=== PATIENT | female | born 1975 | race Two or more races ===

== ENCOUNTER → 2019-09-11 | Day surgery (SDC) | payer OTHER ==
[~2019-09-11] MED LIST: ACETAMINOPHEN 325 MG TABLET PO PRN; ALBUTEROL SULFATE 2.5 MG/3 ML NEBU. NEB PRN; ATROPINE 0.5 MG/5 ML DISP.SYRIN. IV PRN; IV RINGERS SOLUTION,LACTATED 1,000 ML IV SCH; ONDANSETRON PF 4 MG/2 ML VIAL. IV PRN; PHENOL ORAL SPRAY 177ML BOTTLE. MM PRN; PROPOFOL 20 ML IV ONE; diphenhydrAMINE 50 MG/ML VIAL IV PRN
[2019-09-11 12:14] VITALS: BP 107/63
--- NOTE | 2019-09-12 18:38 | PATHOLOGY ---
[facility] Accession Number: [id number] . 01 Material submitted: . PART A: small bowel - SMALL BOWEL BX PART B: stomach - GASTRIC BX PART C: esophagus - DISTAL ESOPHAGUS BX. Modifiers: distal . 01 Clinical history: . Dysphagia A. R/O celiac B. R/O H. pylori . 02 Diagnosis: A. Small bowel biopsies: - No significant pathologic abnormalities. . B. Gastric biopsies: - Chronic gastritis, mild. . C. Esophageal biopsy, distal esophagus: - Segment of mildly hyperplastic squamous esophageal mucosa identified. . (JPM:willy; 09/12/2019) [facility] 09/12/2019 1305 Local . 02 Comment: Sections of the small bowel biopsy reveal segments of small intestine mucosa. Where best oriented, the mucosal villi show no sprue-like changes or significant inflammatory changes. . Sections of the gastric biopsy reveal segments of gastric antral and antral/body transition mucosa showing congestion and mild chronic inflammation. A properly-controlled immunoperoxidase stain for Helicobacter is negative for Helicobacter organisms. . Sections of the distal esophageal biopsy reveal a segment of mildly hyperplastic squamous esophageal mucosa. The findings are consistent with reflux esophagitis. There is no evidence of Small's change, dysplasia, or malignancy. . Special stain performed (B1): Immunoperoxidase stain for Helicobacter . (JPM:mml; 09/12/2019) . 02 Electronically signed: . Maikol Mcgovern MD, Pathologist NPI- [id number] . 01 Gross description: . A. The specimen is received in formalin, labeled "Melisa Derrek, small bowel biopsy". Received are two segments of pale atkinson soft tissue ranging in size from 0.2 to 0.4 cm in maximum dimensions. The specimen is submitted entirely in cassette A1. . B. The specimen is received in formalin, labeled "Melisa Derrek, 2". The specimen is additionally labeled on the requisition as, "gastric biopsy". Received are two segments of pale atkinson soft tissue ranging in size from 0.4 to 0.7 cm in maximum dimensions. The specimen is submitted entirely in cassette B1. . C. The specimen is received in formalin, labeled "Melisa Derrek, distal esophagus biopsy". Received is a segment of pale atkinson soft tissue measuring 0.4 cm in maximum dimensions. The specimen is submitted entirely in cassette C1. (CAA; 09/11/2019) QAC/QAC 09/11/2019 1824 Local . 02 Pathologist provided ICD-10: K29.50 . 02 CPT . 143601, 956594, 595341, [id number] Specimen Comment: A courtesy copy of this report has been sent to [phone] Specimen Comment: Report sent to Performed at: 01 [facility] [address], [place] [id number] MD Don Kellogg MD Phone: [phone] Performed at: 02 [facility] [address] [place], [place] [id number] MD Maikol Mcgovern MD Phone: [phone]
== END | disposition home or self-care (01) ==
LOC: SURG 10:05
PROVIDERS: ATTEND Emergency Medicine
DX: R13.10 Dysphagia, unspecified (principal); K29.50 Unspecified chronic gastritis without bleeding; K25.9 Gastric ulcer, unspecified as acute or chronic, without hemorrhage or perforation; K21.9 Gastro-esophageal reflux disease without esophagitis; Z72.89 Other problems related to lifestyle
CPT/HCPCS: 43239; 43450; 88305; 88342; J2704; J7120

== ENCOUNTER → 2020-11-10 | Outpatient (CLI) | payer OTHER ==
[2019-09-11 12:14] VITALS: BP 107/63
--- NOTE | 2020-11-10 17:06 | RAD ---
EXAMINATION: US PELVIS W/TV, 11/10/2020 9:26 AM CLINICAL INDICATION: Heavy and irregular menses TECHNIQUE: Grayscale, color and spectral Doppler ultrasound images of the pelvis via transabdominal a nd transvaginal approach. COMPARISON: None. FINDINGS: The uterus measures 10.3 x 6.6 x 4.4 cm. The endometrial stripe measures 10 mm in thickness. There is a pedunculated ovoid 5 mm mass in the cervix with vascularity, likely a polyp. There is fluid in the cervix. No myometrial abnormality. The right ovary measures 1.9 x 2.1 x 2.8 cm. The left ovary measures 3.3 x 2.2 x 2.7 cm. There is nor mal blood flow to both ovaries. There is a 2 cm dominant follicle or simple cyst in the left ovary. N o adnexal mass or free fluid. IMPRESSION: 5 mm mass in the cervix, likely a polyp. Correlate with physical exam. Electronically signed by: Linda Redmond MD (11/10/2020 5:03 PM) [id number]
--- NOTE | 2020-11-11 09:32 | RAD ---
EXAMINATION: DG SMALL BOWEL FOLLOW THROUGH 11/10/2020 10:02 AM HISTORY: Anemia, fibroids, bloating, severe abdominal pain immediately after eating COMPARISON: None. TECHNIQUE: An overhead electrician journeyman wireman image was obtained. Subsequent images were obtained periodically after t he patient drank barium until contrast reached the colon. FINDINGS: Sandblaster Paint Sprayer image demonstrates stool in the colon. No abnormal calcifications. The stomach and small bowel are normal in morphology. No obvious filling defects. No evidence of smal l bowel obstruction or dilation. Contrast likely reaches the cecum within 120 minutes and reaches the hepatic flexure by 240 minutes. Contrast has completely cleared from the stomach by 120 minutes. IMPRESSION: Normal small bowel follow-through. Electronically signed by: Linda Redmond MD (11/11/2020 9:29 AM) [id number]
== END ==
LOC: RAD 08:55
PROVIDERS: ATTEND Internal Medicine Gastroenterology
DX: N88.8 Other specified noninflammatory disorders of cervix uteri (principal); D64.9 Anemia, unspecified
CPT/HCPCS: 74250; 76830; 76856